=== PATIENT | male | born 1985 | race African-American/Black ===

== ENCOUNTER 2020-12-22 04:37 | Emergency (ER) | payer SELFPAY ==
[~2020-12-22] VITALS: Ht 162.6 cm; Wt 90.0 kg
[2020-12-22 05:55] VITALS: BP 147/71
== END 2020-12-22 06:21 | disposition home or self-care (01) ==
LOC: ER 04:37
DX: F12.10 Cannabis abuse, uncomplicated (principal); R11.2 Nausea with vomiting, unspecified; J45.909 Unspecified asthma, uncomplicated
CPT/HCPCS: 93005; 99283